=== PATIENT | female | born 1970 | race Caucasian/White ===

== ENCOUNTER 2016-12-15 15:46 | Outpatient (CLI) | payer OTHER | END 2016-12-15 15:47 | disposition home or self-care (01) | DX: R07.9 Chest pain, unspecified (principal) ==

== ENCOUNTER 2017-02-23 17:27 | Outpatient (CLI) | payer OTHER | END 2017-02-23 17:28 | disposition home or self-care (01) | DX: K51.90 Ulcerative colitis, unspecified, without complications (principal) ==

== ENCOUNTER 2018-01-26 15:19 | Outpatient (CLI) | payer OTHER ==
--- NOTE | 2018-01-27 14:16 | XRAY Report ---
PELVIS AND BILATERAL HIPS: 01/26/2018 HISTORY: Pain. COMPARISON: CT abdomen and pelvis 01/29/2009. TECHNIQUE: AP view of the pelvis and frog lateral view of each hip are available. FINDINGS: Hip joints are well maintained. No evidence of fracture, malalignment, significant narrowing or bone destruction. Sacroiliac joints are unremarkable. IUD in place within the pelvis. IMPRESSION: NEGATIVE PELVIS AND BILATERAL HIP X-RAY. TD: 01/27/2018 14:15
--- NOTE | 2018-01-27 16:34 | XRAY Report ---
EXAM: Lumbar spine 3 views INDICATION: back pain FINDINGS: Images are performed standing. Approximate 5-degree thoracolumbar junction levoscoliosis. Surgical clips right upper quadrant. Minimal retrolisthesis L3 with respect to L4. Vertebral bodies otherwise normal in height and alignment. Minor L3-L4 disk space narrowing. Remaining disk space heights well maintained. Mild early degenerative facet joint arthropathy lower lumbar levels. IMPRESSION 1. MINOR EARLY DEGENERATIVE CHANGE LUMBAR SPINE WITHOUT SUPERIMPOSED ACUTE FINDINGS. TD: 01/27/2018 14:56 MTDD
== END 2018-01-26 15:20 | disposition home or self-care (01) ==
LOC: DI 15:19
PROVIDERS: ATTEND Nurse Practitioner
DX: M47.896 Other spondylosis, lumbar region (principal); M43.16 Spondylolisthesis, lumbar region
CPT/HCPCS: 72100; 73521